=== PATIENT | male | born 1970 | race Caucasian/White ===

== ENCOUNTER 2019-10-04 12:58 | Emergency (ER) | payer BC, OTHER ==
[~2019-10-04] VITALS: Ht 180.3 cm; Wt 69.4 kg
--- NOTE | 2019-10-04 13:17 | NUR ---
PT C/O LLQ ABD PAIN THAT BEGAN THIS AM. HX DIVERTICULITIS. DENIES N/V/D, NO BLOODY STOOL. CALLED [facility] TO BRING PT TO ER. CONNECTED TO MONITORING. MD AT BEDSIDE. AWAITING ORDERS AT THIS TIME.
[2019-10-04 14:08] LABS: BASOPHILS # (AUTO) 0.01 x10^3/uL (0-0.1); BASOPHILS % (AUTO) 0 % (0-1); EOSINOPHILS # (AUTO) 0.01 x10^3/uL (0-0.4); EOSINOPHILS % (AUTO) 0 % (1-7); LYMPHOCYTES # (AUTO) 1.15 x10^3/uL (1-3.4); LYMPHOCYTES % (AUTO) 10 % (22-44); MD NO; MEAN CORPUSCULAR HEMOGLOBIN 30.6 pg (27.5-34.5); MEAN CORPUSCULAR HGB CONC 33.5 g/dL (33.2-36.2); MEAN CORPUSCULAR VOLUME 91.4 fL (81-97); MEAN PLATELET VOLUME 7.4 fL (7.4-10.4); MONOCYTES # (AUTO) 1.09 x10^3/uL (0.2-0.8); MONOCYTES % (AUTO) 10 % (2-9); NEUTROPHILS # (AUTO) 9.12 x10^3/uL (1.8-6.8); NEUTROPHILS % (AUTO) 80 % (42-75); PLATELET COUNT 354 x10^3/uL (130-400); RED BLOOD COUNT 4.83 x10^6/uL (4.38-5.82); RED CELL DISTRIBUTION WIDTH 13.6 % (9.4-14.8)
--- NOTE | 2019-10-04 14:09 | NUR ---
PT AMBULATED TO RESTROOM WITH STEADY GAIT TO PROVIDE URINE SAMPLE. UA COLLECTED AND SENT TO LAB.
[2019-10-04 14:12] LABS: ANION GAP 9 mmol/L (5-15); CALCIUM 9.5 mg/dL (8.5-10.1); CHLORIDE 111 mmol/L (98-107); CREATININE 0.93 mg/dL (0.7-1.3)
[2019-10-04 14:29] LABS: MICROSCOPIC AUTO
[2019-10-04 14:30] LABS: CULTURE INDICATED? NO
[2019-10-04 15:03] LABS: AMPHETAMINE SCREEN, URINE Negative (Negative); BARBITURATE SCREEN, URINE Negative (Negative); BENZODIAZEPINE SCREEN, URINE Negative (Negative); CANNABINOID SCREEN, URINE Positive (Negative); COCAINE SCREEN, URINE Negative (Negative); METHADONE SCREEN, URINE Negative (Negative); OPIATE SCREEN, URINE Negative (Negative)
--- NOTE | 2019-10-04 15:20 | NUR ---
PT AT CT
--- NOTE | 2019-10-04 15:57 | NUR ---
PT BACK FROM CT. PT RESTING ON GURNEY WITH FAMILY AT BEDSIDE.
--- NOTE | 2019-10-04 15:58 | NUR ---
ALL RESULTS ARE BACK AT THIS TIME. CHART UP FOR RECHECK.
--- NOTE | 2019-10-04 16:19 | NUR ---
FAMILY BROUGHT TO THIS NURSE ATTN THAT PT IS ACTING DIFFERENTLY. PT OBSERVED TO BE COVERING HIS EYES, STATING " HE DOESN'T WANT TO LOOK RIGHT NOW". PT DID NOT ANSWER WHAT HE DID NOT WANT TO LOOK AT. FAMILY STATED HIS FACIAL EXPRESSION IS OFF. PT ANSWERED ALL QUESTIONS APPROPRIATELY. FAMILY HAS RECORDED PT ACTIONS AND REPLAYED THE VIDEO BACK TO SHOW THIS NURSE. NOTIFIED.
--- NOTE | 2019-10-04 16:24 | NUR ---
MD AT BEDSIDE TO UPDATE PT ON POC.
--- NOTE | 2019-10-04 17:03 | NUR ---
LUNCH BREAK NOTE: ABI LEAD SHOP OPERATOR AT BEDSIDE FOR PSYCH EVAL.
[2019-10-04 17:45] LABS: ALBUMIN 4.3 g/dL (3.4-5.0); BILIRUBIN, DIRECT 0.3 mg/dL (0.1-0.2)
[2019-10-04 17:48] LABS: BILIRUBIN,TOTAL 1.3 mg/dL (0.2-1.0); TOTAL PROTEIN 8.5 g/dL (6.4-8.2)
[2019-10-04] MEDS ORDERED: HALOPERIDOL 5 MG TABLET ONE (17:53)
[2019-10-04] MEDS ORDERED: LORazepam 1MG TABLET ONE (17:53)
[2019-10-04] MEDS ORDERED: DIPHENHYDRAMINE 50 MG CAPSULE ONE (17:53)
--- NOTE | 2019-10-04 17:56 | NUR ---
[facility]S ADMINISTERED PER JAN. PT TOOK PILLS W/O INCIDENCE. FAMILY AT BEDSIDE.
[2019-10-04] MEDS ORDERED: DIPHENHYDRAMINE 25 MG CAPSULE PO ONE (18:00)
[2019-10-04] MEDS ORDERED: DIPHENHYDRAMINE 50 MG/ML, 1ML IM PRN (18:00)
[2019-10-04] MEDS ORDERED: HALOPERIDOL 5 MG TABLET PO ONE (18:00)
[2019-10-04] MEDS ORDERED: LORazepam 1MG TABLET PO ONE (18:00)
[2019-10-04] MEDS ORDERED: LORazepam 2 MG/ML, 1ML IM PRN (18:00)
[2019-10-04] MEDS ORDERED: HALOPERIDOL 5 MG/ML IM PRN (18:00)
--- NOTE | 2019-10-04 18:32 | NUR ---
PT MOVED TO SECURE ROOM, IN DIRECT LINE OF SITE OF SITTER FOR CLOSE OBS PRECAUTIONS.
--- NOTE | 2019-10-04 18:47 | NUR ---
Throughput RN note: Pt's packet faxed to [id number], [facility], [facility].
--- NOTE | 2019-10-04 19:21 | NUR ---
PT RESTING IN BED WITH PT SISTER AT PT BEDSIDE. PT PROVIDED MEAL TRAY AND PILLOW.
--- NOTE | 2019-10-04 20:21 | NUR ---
[facility] CALLED TO SAY THAT DR. CERVANTES WILL BE ACCEPTING THIS PATIENT THIS EVENING.
--- NOTE | 2019-10-04 20:30 | NUR ---
[facility] CALLED AND SALES TEACHER GAVE REPORT TO BOTH. PT SISTER METIONED PT NOT WANTING TO GO TO [facility] DUE TO A BAD PAST EXPERINCE OF SOME SORT. PT ASKED TO BE CALLED WHEN FURTHER INFORMATION OF WHERE PT MIGHT BE GOING WAS OBTAINED.
--- NOTE | 2019-10-04 20:34 | NUR ---
TP NURSE: [facility] CALLED TO SAY THAT THEY ARE DECLINING THIS PT.
--- NOTE | 2019-10-04 20:45 | NUR ---
PT WAS ACCEPTED AT [facility] AND DENIED AT [facility]. PT WAS CALLED AND NOTIFIED THAT PT WILL BE TRANSFERED TO [place].
--- NOTE | 2019-10-04 23:25 | NUR ---
[facility] HERE. PACKET GIVEN TO MEDIC
[2019-10-04 23:37] VITALS: BP 139/84
== END 2019-10-04 23:41 ==
LOC: ED 13:29
DX: R10.32 Left lower quadrant pain (principal); F30.9 Manic episode, unspecified; I10 Essential (primary) hypertension; F23 Brief psychotic disorder
CPT/HCPCS: 36415; 70450; 74018; 74176; 80048; 80076; 80307; 81001; 82140; 83690; 84443; 85025; 99285; Q0163